=== PATIENT | female | born 1960 | race Two or more races ===

== ENCOUNTER → 2016-06-16 | Outpatient (CLI) | payer BC ==
[~2016-06-16] VITALS: Ht 1 cm; Wt 0.5 kg
[~2016-06-16] MED LIST: CYANOCOBALAMIN (B-12) 1000 MCG/1 ML VIAL IM ONE; CYANOCOBALAMIN (B-12) 1000 MCG/1 ML VIAL ONE; KETOROLAC TROMETH 60MG/2ML VIAL IM ONE
[2016-06-16 15:00] VITALS: BP 125/79
[2016-06-16 15:31] VITALS: BP 124/84
[2016-06-16 16:29] LABS: Basophils # (auto) 0 uL; Basophils % (auto) 0.6 % (0.0-2.0); Eosinophils # (auto) 0.1 uL; Eosinophils % (auto) 2.1 % (0.0-7.0); Hematocrit 39.8 % (36.0-46.0); Hemoglobin 12.9 g/dL (12.2-16.2); Lymphocytes # (auto) 0.9 uL; Lymphocytes % (auto) 17.1 % (10.0-50.0); Mean Corpuscular Hemoglobin 31.1 pg (28.0-32.0); Mean Corpuscular Hgb Conc. 32.4 g/dL (32.0-36.0); Mean Corpuscular Volume 96.1 fL (80.0-100.0); Mean Platelet Volume 8.6 fL (7.4-10.4); Monocytes # (auto) 0.4 uL; Monocytes % (auto) 7.1 % (0.0-12.0); Neutrophils # (auto) 3.8 uL; Neutrophils % (auto) 73.1 % (37.0-80.0); Platelet Count (auto) 320 10^3/uL (140-450); Red Cell Distribution Width 12.4 % (11.6-16.0); White Blood Cell 5.2 10^3/uL (4.4-10.8)
[2016-06-16 16:43] LABS: Albumin 3.6 g/dL (3.4-5.0); BUN/Creatinine Ratio 11.5; Bilirubin, Total 0.4 mg/dL (0.2-1.0); Total Protein 7.1 g/dL (6.4-8.2)
== END | disposition home or self-care (01) ==
LOC: CHF HDHVI 15:01
PROVIDERS: ATTEND Internal Medicine Cardiovascular Disease
DX: I10 Essential (primary) hypertension (principal); E83.40 Disorders of magnesium metabolism, unspecified; D64.9 Anemia, unspecified
CPT/HCPCS: 36415; 80053; 83735; 85025; 96372; G0463; J1885

== ENCOUNTER → 2016-06-23 | Outpatient (CLI) | payer BC | END | disposition home or self-care (01) | LOC: Rad HDHVI 10:05 | PROVIDERS: ATTEND Internal Medicine Cardiovascular Disease | DX: I10 Essential (primary) hypertension (principal) | CPT/HCPCS: 93306 ==

== ENCOUNTER → 2016-07-13 | Outpatient (CLI) | payer BC ==
[2016-07-13 15:15] VITALS: BP 122/77
[2016-07-13 15:45] VITALS: BP 120/78
== END | disposition home or self-care (01) ==
LOC: CHF HDHVI 15:18
PROVIDERS: ATTEND Internal Medicine Cardiovascular Disease
DX: I10 Essential (primary) hypertension (principal); D64.9 Anemia, unspecified; M25.562 Pain in left knee; R53.81 Other malaise; R53.83 Other fatigue
CPT/HCPCS: 96372; G0463; J1885; J3420

== ENCOUNTER → 2016-11-07 | Outpatient (CLI) | payer BC ==
[~2016-11-07] VITALS: Ht 149.9 cm; Wt 56.7 kg
== END | disposition home or self-care (01) ==
LOC: Rad HDHVI 13:52
PROVIDERS: ATTEND Internal Medicine Cardiovascular Disease
DX: I10 Essential (primary) hypertension (principal)
CPT/HCPCS: 78452; 93017; 96374; A9500

== ENCOUNTER → 2018-08-14 | Outpatient (CLI) | payer BC ==
[2018-08-14 16:18] LABS: Basophils # (auto) 0 uL; Basophils % (auto) 0.7 % (0.0-2.0); Eosinophils # (auto) 0.2 uL; Eosinophils % (auto) 6.1 % (0.0-7.0); Hematocrit 42.4 % (36.0-46.0); Hemoglobin 14.1 g/dL (12.2-16.2); Lymphocytes # (auto) 0.9 uL; Lymphocytes % (auto) 26.7 % (10.0-50.0); Mean Corpuscular Hgb Conc. 33.3 g/dL (32.0-36.0); Mean Corpuscular Volume 95.9 fL (80.0-100.0); Monocytes # (auto) 0.3 uL; Monocytes % (auto) 9.2 % (0.0-12.0); Neutrophils # (auto) 1.9 uL; Neutrophils % (auto) 57.3 % (37.0-80.0); Nucleated Red Blood Cells % 0.8 %; Platelet Count (auto) 249 10^3/uL (140-450); Red Blood Cells 4.42 10^6/uL (4.0-5.20); Red Cell Distribution Width 12.3 % (11.8-14.3); White Blood Cell 3.3 10^3/uL (4.4-10.8)
[2018-08-14 16:27] LABS: Albumin 3.8 g/dL (3.4-5.0); Calcium 9.9 mg/dL (8.5-10.1); Magnesium 1.9 mg/dL (1.6-2.6); Potassium 3.9 mmol/L (3.5-5.1)
[2018-08-14 16:41] LABS: BUN/Creatinine Ratio 12.4; Bilirubin, Total 0.5 mg/dL (0.2-1.0); Total Protein 6.9 g/dL (6.4-8.2)
== END | disposition home or self-care (01) ==
LOC: LAB 13:57
PROVIDERS: ATTEND Internal Medicine Cardiovascular Disease
DX: E55.9 Vitamin D deficiency, unspecified (principal); I49.9 Cardiac arrhythmia, unspecified; D51.9 Vitamin B12 deficiency anemia, unspecified; E03.9 Hypothyroidism, unspecified; E61.2 Magnesium deficiency
CPT/HCPCS: 36415; 80053; 80061; 82306; 82607; 83036; 83735; 84443; 85025

== ENCOUNTER → 2018-08-17 | Outpatient (CLI) | payer BC ==
[2018-08-17 12:00] VITALS: BP 118/93
--- NOTE | 2018-08-17 12:00 | NUR ---
CH[facility] PT ARRIVED AT [facility] FOR FOLLOW UP APPT. 0 DISTRESS V/S OBTAINED PT A/O X3 0 PAIN
[2018-08-17 13:00] VITALS: BP 125/87
--- NOTE | 2018-08-17 13:00 | NUR ---
Discharge Instructions See e-MAR for any mediations given with this visit. Patient education given on disease process. Patient verbalized understanding. Previous labs reviewed. Patient discharged in stable condition with after care instructions and follow up appointment.
--- NOTE | 2018-08-17 15:49 | NUR ---
CHF CARDIODYNAMICS AND 6 MIN WALK TEST COMPLETE PT TOLERATED WELL
== END | disposition home or self-care (01) ==
LOC: Rad HDHVI 12:10
PROVIDERS: ATTEND Internal Medicine Cardiovascular Disease
DX: I07.1 Rheumatic tricuspid insufficiency (principal); I27.0 Primary pulmonary hypertension; R06.02 Shortness of breath
CPT/HCPCS: 93306; 93701; 94618; G0463

== ENCOUNTER → 2018-09-19 | Outpatient (CLI) | payer BC ==
[~2018-09-19] MED LIST changes: -KETOROLAC TROMETH 60MG/2ML VIAL IM ONE
[2018-09-19 11:45] VITALS: BP 115/81
[2018-09-19 12:30] VITALS: BP 106/81
--- NOTE | 2018-09-19 12:30 | NUR ---
[facility] Discharge Instructions See e-MAR for any mediations given with this visit. Patient education given on disease process. Patient verbalized understanding. Previous labs reviewed. Patient discharged in stable condition with after care instructions and follow up appointment. NOTE B12 IM L DELTOID ADMIN BY SOHAIL SILVA CARDIODYNAMICS PERFORMED BY SOHAIL SILVA AND RESULTS REVIEWED WITH PATIENT BY RYAN CALVERT.
[2018-09-19 16:39] LABS: Albumin 3.5 g/dL (3.4-5.0); Calcium 9.6 mg/dL (8.5-10.1); Magnesium 2.1 mg/dL (1.6-2.6); Potassium 4.1 mmol/L (3.5-5.1)
[2018-09-19 16:41] LABS: Basophils # (auto) 0 uL; Basophils % (auto) 0.7 % (0.0-2.0); Eosinophils # (auto) 0.1 uL; Eosinophils % (auto) 2.4 % (0.0-7.0); Hematocrit 42.2 % (36.0-46.0); Hemoglobin 14.3 g/dL (12.2-16.2); Lymphocytes # (auto) 0.9 uL; Lymphocytes % (auto) 20.8 % (10.0-50.0); Mean Corpuscular Hemoglobin 32.5 pg (28.0-32.0); Mean Corpuscular Hgb Conc. 33.8 g/dL (32.0-36.0); Mean Corpuscular Volume 96.1 fL (80.0-100.0); Monocytes # (auto) 0.4 uL; Monocytes % (auto) 8.5 % (0.0-12.0); Neutrophils % (auto) 67.6 % (37.0-80.0); Nucleated Red Blood Cells % 0.2 %; Platelet Count (auto) 198 10^3/uL (140-450); Red Blood Cells 4.39 10^6/uL (4.0-5.20); Red Cell Distribution Width 12.8 % (11.8-14.3); White Blood Cell 4.4 10^3/uL (4.4-10.8)
[2018-09-19 16:44] LABS: BUN/Creatinine Ratio 15.8; Bilirubin, Total 0.7 mg/dL (0.2-1.0); Total Protein 6.8 g/dL (6.4-8.2)
== END | disposition home or self-care (01) ==
LOC: CHF HDHVI 12:15
PROVIDERS: ATTEND Internal Medicine Cardiovascular Disease
DX: D64.9 Anemia, unspecified (principal); E83.40 Disorders of magnesium metabolism, unspecified; I10 Essential (primary) hypertension; R53.83 Other fatigue; I27.21 Secondary pulmonary arterial hypertension; E03.9 Hypothyroidism, unspecified
CPT/HCPCS: 36415; 80053; 83735; 85025; 93701; 96372; G0463; J3420

== ENCOUNTER → 2018-11-28 | Outpatient (CLI) | payer BC ==
[2018-11-28 15:20] VITALS: BP 117/91
[2018-11-28 15:59] LABS: Basophils # (auto) 0 uL; Basophils % (auto) 1.1 % (0.0-2.0); Eosinophils # (auto) 0.1 uL; Eosinophils % (auto) 3.1 % (0.0-7.0); Hematocrit 40.8 % (36.0-46.0); Hemoglobin 14.1 g/dL (12.2-16.2); Lymphocytes # (auto) 0.9 uL; Lymphocytes % (auto) 20.1 % (10.0-50.0); Mean Corpuscular Hemoglobin 33.4 pg (28.0-32.0); Mean Corpuscular Hgb Conc. 34.6 g/dL (32.0-36.0); Mean Corpuscular Volume 96.4 fL (80.0-100.0); Monocytes # (auto) 0.4 uL; Monocytes % (auto) 9.1 % (0.0-12.0); Neutrophils % (auto) 66.6 % (37.0-80.0); Nucleated Red Blood Cells % 0.1 %; Platelet Count (auto) 220 10^3/uL (140-450); Red Blood Cells 4.23 10^6/uL (4.0-5.20); Red Cell Distribution Width 12.8 % (11.8-14.3); White Blood Cell 4.5 10^3/uL (4.4-10.8)
[2018-11-28 16:00] VITALS: BP 113/79
--- NOTE | 2018-11-28 16:00 | NUR ---
[facility] Discharge Instructions See e-MAR for any mediations given with this visit. Patient education given on disease process. Patient verbalized understanding. Previous labs reviewed. Patient discharged in stable condition with after care instructions and follow up appointment. NOTE CARDIODYNAMICS PERFORMED BY KAYLEY SILVA AND REVIEWED WITH PATIENT BY VERNELL CALVERT. B12 IM L DELTOID ADMIN BY KAYLEY SILVA. ADCIRCA CHANGED TO 40MG BID, ECHO SCHEDULED FOR 12/26/18 AT 1500.
[2018-11-28 16:09] LABS: Albumin 3.8 g/dL (3.4-5.0); BUN/Creatinine Ratio 13.5; Calcium 9.7 mg/dL (8.5-10.1); Potassium 3.7 mmol/L (3.5-5.1)
[2018-11-28 16:11] LABS: Bilirubin, Total 0.8 mg/dL (0.2-1.0); Total Protein 7.2 g/dL (6.4-8.2)
== END | disposition home or self-care (01) ==
LOC: CHF HDHVI 15:28
PROVIDERS: ATTEND Internal Medicine Cardiovascular Disease
DX: I27.21 Secondary pulmonary arterial hypertension (principal); R53.83 Other fatigue; D64.9 Anemia, unspecified; I10 Essential (primary) hypertension
CPT/HCPCS: 36415; 80053; 85025; 93701; 96372; G0463; J3420

== ENCOUNTER 2019-08-18 19:56 | Emergency (ER) | payer BC ==
[~2019-08-18] VITALS: Ht 149.9 cm; Wt 59.4 kg
[2019-08-18 23:23] VITALS: BP 138/86
[2019-08-18] MEDS ORDERED: CLINDAMYCIN 600 MG/4 ML VL IM ONE (23:30)
[2019-08-18] MEDS ORDERED: TETANUS-DIPTH-ACEL PERTUSSIS 0.5ML SYR Tdap IM ONE (23:30)
== END 2019-08-19 00:39 | disposition home or self-care (01) ==
LOC: ER 19:57
DX: S51.851A Open bite of right forearm, initial encounter (principal); W55.01XA Bitten by cat, initial encounter; Y93.89 Activity, other specified; Y92.89 Other specified places as the place of occurrence of the external cause; Y99.8 Other external cause status
CPT/HCPCS: 90471; 90715; 96372

== ENCOUNTER → 2020-03-04 | Outpatient (CLI) | payer BC | END | disposition home or self-care (01) | LOC: Rad HDHVI 14:06 | PROVIDERS: ATTEND Internal Medicine Cardiovascular Disease | DX: I27.21 Secondary pulmonary arterial hypertension (principal); R07.89 Other chest pain | CPT/HCPCS: 93306 ==

== ENCOUNTER → 2020-06-17 | Outpatient (CLI) | payer BC ==
[~2020-06-17] VITALS: Ht 30.5 cm; Wt 0.5 kg
[2020-06-17 10:45] VITALS: BP 133/100
[2020-06-17 12:10] VITALS: BP 135/94
[2020-06-17 15:36] LABS: Basophils # (auto) 0 10 ^3/uL (0-0.2); Basophils % (auto) 0.7 % (0.0-2.0); Eosinophils # (auto) 0.1 10 ^3/uL (0-0.8); Eosinophils % (auto) 3.4 % (0.0-7.0); Hematocrit 40.6 % (36.0-46.0); Hemoglobin 13.7 g/dL (12.2-16.2); Lymphocytes % (auto) 24.2 % (10.0-50.0); Mean Corpuscular Hgb Conc. 33.8 g/dL (32.0-36.0); Mean Corpuscular Volume 88.8 fL (80.0-100.0); Monocytes # (auto) 0.4 10 ^3/uL (0-1.3); Monocytes % (auto) 10.1 % (0.0-12.0); Neutrophils # (auto) 2.6 10 ^3/uL (1.6-8.6); Neutrophils % (auto) 61.6 % (37.0-80.0); Platelet Count (auto) 262 10^3/uL (140-450); Red Blood Cells 4.58 10^6/uL (4.0-5.20); Red Cell Distribution Width 15.6 % (11.8-14.3); White Blood Cell 4.2 10^3/uL (4.4-10.8)
[2020-06-17 15:46] LABS: Albumin 3.7 g/dL (3.4-5.0); BUN/Creatinine Ratio 11.8; Magnesium 2.1 mg/dL (1.6-2.6)
[2020-06-17 15:48] LABS: Bilirubin, Total 0.5 mg/dL (0.2-1.0); Total Protein 7.3 g/dL (6.4-8.2)
== END | disposition home or self-care (01) ==
LOC: CHF HDHVI 10:53
PROVIDERS: ATTEND Internal Medicine Cardiovascular Disease
DX: I27.0 Primary pulmonary hypertension (principal); D64.9 Anemia, unspecified; E55.9 Vitamin D deficiency, unspecified; E11.9 Type 2 diabetes mellitus without complications; R06.02 Shortness of breath
CPT/HCPCS: 36415; 71046; 80053; 82306; 82607; 83036; 83735; 83880; 84443; 85025; 94618; 96372; G0463; J3420

== ENCOUNTER → 2020-10-09 | Outpatient (CLI) | payer BC | END | disposition home or self-care (01) | LOC: Rad HDHVI 14:58 | PROVIDERS: ATTEND Internal Medicine Cardiovascular Disease | DX: R07.89 Other chest pain (principal); R06.02 Shortness of breath | CPT/HCPCS: 93306 ==

== ENCOUNTER → 2021-10-20 | Outpatient (CLI) | payer BC | END | disposition home or self-care (01) | LOC: Rad HDHVI 14:01 | PROVIDERS: ATTEND Internal Medicine Cardiovascular Disease | DX: I08.2 Rheumatic disorders of both aortic and tricuspid valves (principal); R06.02 Shortness of breath; R00.2 Palpitations | CPT/HCPCS: 93306 ==

== ENCOUNTER → 2021-10-21 | Outpatient (CLI) | payer BC ==
[~2021-10-21] VITALS: Ht 152.4 cm; Wt 63.5 kg
== END | disposition home or self-care (01) ==
LOC: Rad HDHVI 14:02
PROVIDERS: ATTEND Internal Medicine Cardiovascular Disease
DX: R07.9 Chest pain, unspecified (principal); I10 Essential (primary) hypertension; R06.02 Shortness of breath; I27.21 Secondary pulmonary arterial hypertension; Z82.49 Family history of ischemic heart disease and other diseases of the circulatory system
CPT/HCPCS: 78452; 93017; 96374; A9500

== ENCOUNTER 2022-06-30 08:37 | Inpatient (IN) | payer BC ==
[~2022-06-30] VITALS: Ht 149.9 cm; Wt 65.9 kg
[2022-06-30 09:23] LABS: Albumin 3.5 g/dL (3.4-5.0); Calcium 9.8 mg/dL (8.5-10.1); Magnesium 1.2 mg/dL (1.6-2.6)
[2022-06-30 09:29] LABS: BUN/Creatinine Ratio 11.1; Bilirubin, Total 4.5 mg/dL (0.2-1.0)
[2022-06-30 09:36] LABS: Eosinophils # (auto) 0 10 ^3/uL (0-0.8); Hematocrit 41.2 % (36.0-46.0); Lymphocytes # (auto) 0.5 10 ^3/uL (0.4-5.4); Neutrophils % (auto) 78.4 % (37.0-80.0)
[2022-06-30 09:37] LABS: Basophils # (auto) 0.1 10 ^3/uL (0-0.2); Basophils % (auto) 0.9 % (0.0-2.0); Eosinophils % (auto) 0.6 % (0.0-7.0); Hemoglobin 14.5 g/dL (12.2-16.2); Lymphocytes % (auto) 8.2 % (10.0-50.0); Mean Corpuscular Hemoglobin 36.2 pg (28.0-32.0); Mean Corpuscular Hgb Conc. 35.2 g/dL (32.0-36.0); Mean Corpuscular Volume 102.9 fL (80.0-100.0); Monocytes # (auto) 0.7 10 ^3/uL (0-1.3); Monocytes % (auto) 11.9 % (0.0-12.0); Neutrophils # (auto) 4.4 10 ^3/uL (1.6-8.6); Nucleated Red Blood Cells % 0.4 %; Red Blood Cells 4.01 10^6/uL (4.0-5.20); Red Cell Distribution Width 15.4 % (11.8-14.3); White Blood Cell 5.6 10^3/uL (4.4-10.8)
[2022-06-30 09:39] LABS: Potassium 2.6 mmol/L (3.5-5.1)
[2022-06-30 09:43] LABS: INR 1.13 (0.9-1.15); Partial Thromboplastin Time 25.1 sec (24.6-33.4)
[2022-06-30 09:48] LABS: Urine Bacteria NONE SEEN /hpf (None Seen); Urine Blood Negative /uL (Negative); Urine WBC 1 /hpf (0 - 5)
[2022-06-30] MEDS ORDERED: POTASSIUM CHL 20MEQ/100ML 100 ML IV ONE (11:15)
[2022-06-30] MEDS ORDERED: POTASSIUM CHL 20 Meq TABLET PO ONE (11:15)
[2022-06-30] MEDS ORDERED: POTASSIUM EFFERVESENT TAB 25 MEQ PO ONE (11:45)
[2022-06-30] MEDS ORDERED: NITROGLYCERIN 0.4 MG SL TAB SL PRN (11:45)
[2022-06-30] MEDS ORDERED: MORPHINE SULFATE INJ 2 MG/ml SYRG IV PRN (11:45)
[2022-06-30] MEDS: LORazepam 2MG/ML-1ML VIAL IV PRN ×2 (12:55→20:48)
[2022-06-30] MEDS: SILDENAFIL CITRATE 20 MG TAB PO SCH ×2 (14:32→21:39)
[2022-06-30] MEDS: FOLIC ACID 1 MG, MULTIPLE VITAMIN 10 ML, MAGNESIUM SULF SDV 50% 8 MEQ, THIAMINE INJ 100... INJ SCH ×5 (14:40)
[2022-06-30] MEDS: chlordiazePOXIDE HCL 25 MG CAP PO SCH (21:39)
[2022-06-30 22:47] VITALS: BP 109/72
[2022-07-01] VITALS (7 sets, daily range): BP systolic 108–132; BP diastolic 76–94
[2022-07-01] MEDS ORDERED: POTA10TA51 PO (02:49)
[2022-07-01] MEDS ORDERED: POLY33504 PO (02:49)
[2022-07-01] MEDS ORDERED: LORA-655 PO (02:49)
[2022-07-01] MEDS ORDERED: SUCR1TAB PO (02:49)
[2022-07-01] MEDS ORDERED: MACI1TAB2 PO (02:49)
[2022-07-01] MEDS ORDERED: FURO1TAB31 PO (02:49)
[2022-07-01] MEDS ORDERED: PANT40TA2 PO (02:49)
[2022-07-01] MEDS: LORazepam 2MG/ML-1ML VIAL IV PRN ×3 (03:01→20:10)
[2022-07-01] MEDS: chlordiazePOXIDE HCL 25 MG CAP PO SCH ×2 (08:21→22:05)
[2022-07-01] MEDS: SILDENAFIL CITRATE 20 MG TAB PO SCH ×3 (08:21→20:10)
[2022-07-01 09:06] LABS: Basophils # (auto) 0 10 ^3/uL (0-0.2); Eosinophils # (auto) 0.1 10 ^3/uL (0-0.8); Mean Corpuscular Volume 103.9 fL (80.0-100.0); Monocytes # (auto) 0.5 10 ^3/uL (0-1.3)
[2022-07-01 09:07] LABS: Basophils % (auto) 0.5 % (0.0-2.0); Eosinophils % (auto) 1.5 % (0.0-7.0); Hematocrit 38.2 % (36.0-46.0); Hemoglobin 13.4 g/dL (12.2-16.2); Lymphocytes # (auto) 0.4 10 ^3/uL (0.4-5.4); Lymphocytes % (auto) 10.6 % (10.0-50.0); Mean Corpuscular Hemoglobin 36.3 pg (28.0-32.0); Mean Corpuscular Hgb Conc. 34.9 g/dL (32.0-36.0); Monocytes % (auto) 12.6 % (0.0-12.0); Neutrophils # (auto) 3.2 10 ^3/uL (1.6-8.6); Neutrophils % (auto) 74.8 % (37.0-80.0); Nucleated Red Blood Cells % 0.4 %; Red Blood Cells 3.68 10^6/uL (4.0-5.20); Red Cell Distribution Width 15.6 % (11.8-14.3); White Blood Cell 4.2 10^3/uL (4.4-10.8)
[2022-07-01 09:23] LABS: Potassium 3.2 mmol/L (3.5-5.1)
[2022-07-01 09:32] LABS: BUN/Creatinine Ratio 12.1; Bilirubin, Total 4.7 mg/dL (0.2-1.0); Calcium 9.7 mg/dL (8.5-10.1); Magnesium 1.7 mg/dL (1.6-2.6); Total Protein 6.2 g/dL (6.4-8.2)
[2022-07-01] MEDS: FOLIC ACID 1 MG, MULTIPLE VITAMIN 10 ML, MAGNESIUM SULF SDV 50% 8 MEQ, THIAMINE INJ 100... INJ SCH ×5 (12:41)
[2022-07-01] MEDS ORDERED: LORazepam 2MG/ML-1ML VIAL IV ONE (13:45)
[2022-07-01] MEDS ORDERED: chlordiazePOXIDE HCL 25 MG CAP PO ONE (13:45)
[2022-07-01] MEDS: FUROSEMIDE 20 MG TAB PO SCH (17:19)
[2022-07-01] MEDS: traMADol HCL 50 MG TAB PO PRN (18:24)
[2022-07-01] MEDS: UPTRAVI PO SCH (22:05)
[2022-07-02] MEDS: LORazepam 2MG/ML-1ML VIAL IV PRN ×4 (03:04→22:27)
[2022-07-02 05:00] VITALS: BP 137/74
[2022-07-02] MEDS: traMADol HCL 50 MG TAB PO PRN ×3 (05:22→17:25)
[2022-07-02] MEDS: FUROSEMIDE 20 MG TAB PO SCH ×2 (06:38→17:27)
[2022-07-02] MEDS: SILDENAFIL CITRATE 20 MG TAB PO SCH ×3 (08:09→20:10)
[2022-07-02] MEDS: POTASSIUM CHL 20 Meq TABLET PO SCH (08:18)
[2022-07-02] MEDS: PANTOPRAZOLE 40 MG TAB PO SCH (08:18)
[2022-07-02 08:30] VITALS: BP 115/82
[2022-07-02 09:00] VITALS: BP 115/82
[2022-07-02] MEDS ORDERED: PANTOPRAZOLE 40 MG TAB PO SCH (10:00)
[2022-07-02] MEDS: UPTRAVI PO SCH ×2 (10:44→21:11)
[2022-07-02] MEDS: chlordiazePOXIDE HCL 25 MG CAP PO SCH ×2 (10:44→21:09)
[2022-07-02] MEDS: FOLIC ACID 1 MG, MULTIPLE VITAMIN 10 ML, MAGNESIUM SULF SDV 50% 8 MEQ, THIAMINE INJ 100... INJ SCH ×5 (12:45)
[2022-07-02 13:30] VITALS: BP 102/70
[2022-07-02 17:00] VITALS: BP 116/74
[2022-07-02 22:00] VITALS: BP 107/71
[2022-07-03] MEDS: LORazepam 2MG/ML-1ML VIAL IV PRN ×4 (04:42→23:45)
[2022-07-03 05:00] VITALS: BP 109/79
[2022-07-03] MEDS: FUROSEMIDE 20 MG TAB PO SCH ×2 (05:20→18:00)
[2022-07-03] MEDS: SILDENAFIL CITRATE 20 MG TAB PO SCH ×3 (08:44→20:06)
[2022-07-03] MEDS: chlordiazePOXIDE HCL 25 MG CAP PO SCH ×2 (08:44→21:21)
[2022-07-03] MEDS: POTASSIUM CHL 20 Meq TABLET PO SCH (08:45)
[2022-07-03] MEDS: PANTOPRAZOLE 40 MG TAB PO SCH (08:46)
[2022-07-03] MEDS: UPTRAVI PO SCH ×2 (08:47→21:22)
[2022-07-03 09:00] VITALS: BP 130/94
[2022-07-03] MEDS: traMADol HCL 50 MG TAB PO PRN (11:48)
[2022-07-03 12:38] VITALS: BP 104/76
[2022-07-03 16:38] VITALS: BP 113/77
[2022-07-03] MEDS: FOLIC ACID 1 MG, MULTIPLE VITAMIN 10 ML, MAGNESIUM SULF SDV 50% 8 MEQ, THIAMINE INJ 100... INJ SCH ×5 (17:02)
[2022-07-03 22:00] VITALS: BP 112/78
[2022-07-04 05:00] VITALS: BP 97/62
[2022-07-04 05:44] VITALS: BP 120/84
[2022-07-04] MEDS: LORazepam 2MG/ML-1ML VIAL IV PRN ×3 (05:54→18:59)
[2022-07-04] MEDS: FUROSEMIDE 20 MG TAB PO SCH ×2 (05:54→17:00)
[2022-07-04] MEDS: chlordiazePOXIDE HCL 25 MG CAP PO SCH ×2 (08:49→20:30)
[2022-07-04] MEDS: PANTOPRAZOLE 40 MG TAB PO SCH (08:50)
[2022-07-04] MEDS: traMADol HCL 50 MG TAB PO PRN ×2 (08:50→17:00)
[2022-07-04] MEDS: POTASSIUM CHL 20 Meq TABLET PO SCH (08:50)
[2022-07-04] MEDS: UPTRAVI PO SCH ×2 (08:51→22:42)
[2022-07-04] MEDS: SILDENAFIL CITRATE 20 MG TAB PO SCH ×3 (08:54→20:31)
[2022-07-04 09:12] VITALS: BP 133/87
[2022-07-04] MEDS: FOLIC ACID 1 MG, MULTIPLE VITAMIN 10 ML, MAGNESIUM SULF SDV 50% 8 MEQ, THIAMINE INJ 100... INJ SCH ×5 (12:00)
[2022-07-04 12:54] VITALS: BP 114/72
[2022-07-04 16:20] VITALS: BP 108/79
[2022-07-04 22:00] VITALS: BP 97/61
[2022-07-05 05:00] VITALS: BP 113/79
[2022-07-05] MEDS: LORazepam 2MG/ML-1ML VIAL IV PRN ×5 (05:04→23:47)
[2022-07-05] MEDS: FUROSEMIDE 20 MG TAB PO SCH ×2 (06:18→17:43)
[2022-07-05 09:00] VITALS: BP 149/71
[2022-07-05] MEDS: SILDENAFIL CITRATE 20 MG TAB PO SCH ×3 (09:10→21:28)
[2022-07-05] MEDS: UPTRAVI PO SCH ×2 (09:10→21:28)
[2022-07-05] MEDS: chlordiazePOXIDE HCL 25 MG CAP PO SCH ×2 (09:10→21:28)
[2022-07-05] MEDS: POTASSIUM CHL 20 Meq TABLET PO SCH (09:11)
[2022-07-05] MEDS: FOLIC ACID 1 MG, MULTIPLE VITAMIN 10 ML, MAGNESIUM SULF SDV 50% 8 MEQ, THIAMINE INJ 100... INJ SCH ×5 (12:13)
[2022-07-05 13:00] VITALS: BP 115/74
[2022-07-05 16:52] VITALS: BP 128/83
[2022-07-05] MEDS: PANTOPRAZOLE 40 MG TAB PO SCH (19:31)
[2022-07-05 21:00] VITALS: BP 123/82
[2022-07-06] MEDS: traMADol HCL 50 MG TAB PO PRN (02:23)
[2022-07-06 05:00] VITALS: BP 131/87
[2022-07-06] MEDS: FUROSEMIDE 20 MG TAB PO SCH ×2 (05:40→18:21)
[2022-07-06 09:09] LABS: Basophils # (auto) 0 10 ^3/uL (0-0.2); Eosinophils # (auto) 0 10 ^3/uL (0-0.8); Eosinophils % (auto) 0.3 % (0.0-7.0); Hematocrit 31.8 % (36.0-46.0); Hemoglobin 10.4 g/dL (12.2-16.2); Monocytes # (auto) 0.8 10 ^3/uL (0-1.3); Neutrophils # (auto) 5.5 10 ^3/uL (1.6-8.6); Nucleated Red Blood Cells % 0.1 %
[2022-07-06 09:11] LABS: Basophils % (auto) 0.4 % (0.0-2.0); Calcium 8.9 mg/dL (8.5-10.1); Mean Corpuscular Hemoglobin 23.8 pg (28.0-32.0); Mean Corpuscular Hgb Conc. 32.7 g/dL (32.0-36.0); Mean Corpuscular Volume 72.6 fL (80.0-100.0); Monocytes % (auto) 10.4 % (0.0-12.0); Neutrophils % (auto) 74.9 % (37.0-80.0); Potassium 3.6 mmol/L (3.5-5.1); Red Blood Cells 4.38 10^6/uL (4.0-5.20); Red Cell Distribution Width 17.7 % (11.8-14.3); White Blood Cell 7.3 10^3/uL (4.4-10.8)
[2022-07-06 09:13] LABS: BUN/Creatinine Ratio 17.8
[2022-07-06] MEDS: SILDENAFIL CITRATE 20 MG TAB PO SCH ×3 (09:51→20:35)
[2022-07-06] MEDS: POTASSIUM CHL 20 Meq TABLET PO SCH (09:51)
[2022-07-06] MEDS: PANTOPRAZOLE 40 MG TAB PO SCH (09:52)
[2022-07-06] MEDS: chlordiazePOXIDE HCL 25 MG CAP PO SCH ×3 (09:52→21:13)
[2022-07-06] MEDS: UPTRAVI PO SCH ×2 (09:52→21:14)
[2022-07-06] MEDS: LORazepam 2MG/ML-1ML VIAL IV PRN (09:54)
[2022-07-06] MEDS: FOLIC ACID 1 MG, MULTIPLE VITAMIN 10 ML, MAGNESIUM SULF SDV 50% 8 MEQ, THIAMINE INJ 100... INJ SCH ×5 (14:17)
[2022-07-06 14:20] VITALS: BP 122/78
[2022-07-06 16:30] VITALS: BP 96/63
[2022-07-06 22:00] VITALS: BP 121/85
[2022-07-07] MEDS: traMADol HCL 50 MG TAB PO PRN ×3 (00:38→14:34)
[2022-07-07] MEDS: LORazepam 2MG/ML-1ML VIAL IV PRN (00:46)
[2022-07-07 05:12] VITALS: BP 111/74
[2022-07-07] MEDS: FUROSEMIDE 20 MG TAB PO SCH ×2 (05:44→17:33)
[2022-07-07 09:00] VITALS: BP 129/88
[2022-07-07] MEDS: POTASSIUM CHL 20 Meq TABLET PO SCH (10:24)
[2022-07-07] MEDS: chlordiazePOXIDE HCL 25 MG CAP PO SCH ×2 (10:24→20:04)
[2022-07-07] MEDS: PANTOPRAZOLE 40 MG TAB PO SCH (10:25)
[2022-07-07] MEDS: SILDENAFIL CITRATE 20 MG TAB PO SCH ×3 (10:25→20:04)
[2022-07-07] MEDS: UPTRAVI PO SCH ×2 (11:53→20:05)
[2022-07-07 13:00] VITALS: BP 119/81
[2022-07-07] MEDS: FOLIC ACID 1 MG, MULTIPLE VITAMIN 10 ML, MAGNESIUM SULF SDV 50% 8 MEQ, THIAMINE INJ 100... INJ SCH ×5 (14:32)
[2022-07-07 17:00] VITALS: BP 100/63
[2022-07-07 22:00] VITALS: BP 113/78
[2022-07-07] MEDS: KETOROLAC TROMETH 30 MG/ML 1ML VIAL IV PRN (23:32)
[2022-07-08 05:00] VITALS: BP 116/70
[2022-07-08] MEDS: FUROSEMIDE 20 MG TAB PO SCH ×2 (05:43→18:09)
[2022-07-08] MEDS: KETOROLAC TROMETH 30 MG/ML 1ML VIAL IV PRN ×2 (05:43→18:14)
[2022-07-08] MEDS: chlordiazePOXIDE HCL 25 MG CAP PO SCH ×2 (08:36→22:08)
[2022-07-08] MEDS: SILDENAFIL CITRATE 20 MG TAB PO SCH ×3 (08:37→20:28)
[2022-07-08] MEDS: PANTOPRAZOLE 40 MG TAB PO SCH (08:37)
[2022-07-08] MEDS: POTASSIUM CHL 20 Meq TABLET PO SCH (08:37)
[2022-07-08] MEDS: UPTRAVI PO SCH ×2 (08:38→22:09)
[2022-07-08 09:00] VITALS: BP 99/67
[2022-07-08] MEDS: IPRATROPIUM BROM 0.5 MG/2.5ML INH SOL NEB PRN (10:51)
[2022-07-08 10:52] LABS: Basophils # (auto) 0 10 ^3/uL (0-0.2); Basophils % (auto) 0.5 % (0.0-2.0); Lymphocytes # (auto) 0.7 10 ^3/uL (0.4-5.4); Neutrophils # (auto) 5.5 10 ^3/uL (1.6-8.6); White Blood Cell 7.5 10^3/uL (4.4-10.8)
[2022-07-08 10:54] LABS: Eosinophils # (auto) 0 10 ^3/uL (0-0.8); Eosinophils % (auto) 0.6 % (0.0-7.0); Hematocrit 38.6 % (36.0-46.0); Lymphocytes % (auto) 8.9 % (10.0-50.0); Mean Corpuscular Hemoglobin 36.2 pg (28.0-32.0); Mean Corpuscular Hgb Conc. 33.6 g/dL (32.0-36.0); Mean Corpuscular Volume 107.7 fL (80.0-100.0); Monocytes # (auto) 1.3 10 ^3/uL (0-1.3); Monocytes % (auto) 17.3 % (0.0-12.0); Neutrophils % (auto) 72.7 % (37.0-80.0); Nucleated Red Blood Cells % 0.1 %; Red Blood Cells 3.58 10^6/uL (4.0-5.20); Red Cell Distribution Width 14.6 % (11.8-14.3)
[2022-07-08] MEDS: FOLIC ACID 1 MG, MULTIPLE VITAMIN 10 ML, MAGNESIUM SULF SDV 50% 8 MEQ, THIAMINE INJ 100... INJ SCH ×5 (12:33)
[2022-07-08 13:21] LABS: BUN/Creatinine Ratio 14.7; Potassium 3.6 mmol/L (3.5-5.1)
[2022-07-08 13:22] LABS: Albumin 2.3 g/dL (3.4-5.0); Bilirubin, Total 1.5 mg/dL (0.2-1.0); Calcium 10.1 mg/dL (8.5-10.1); Total Protein 6.3 g/dL (6.4-8.2)
[2022-07-08 17:00] VITALS: BP 109/65
[2022-07-08] MEDS: traMADol HCL 50 MG TAB PO PRN (17:03)
[2022-07-08 22:00] VITALS: BP 91/53
[2022-07-08 23:29] VITALS: BP 91/53
[2022-07-08] MEDS: LORazepam 2MG/ML-1ML VIAL IV PRN (23:39)
[2022-07-09] MEDS: KETOROLAC TROMETH 30 MG/ML 1ML VIAL IV PRN (03:04)
[2022-07-09] MEDS: IPRATROPIUM BROM 0.5 MG/2.5ML INH SOL NEB PRN ×3 (03:34→20:17)
[2022-07-09 05:00] VITALS: BP 110/76
[2022-07-09] MEDS: FUROSEMIDE 20 MG TAB PO SCH ×2 (06:25→18:06)
[2022-07-09 08:00] VITALS: BP 110/76
[2022-07-09] MEDS: SILDENAFIL CITRATE 20 MG TAB PO SCH ×3 (08:30→20:24)
[2022-07-09] MEDS: PANTOPRAZOLE 40 MG TAB PO SCH (08:30)
[2022-07-09] MEDS: POTASSIUM CHL 20 Meq TABLET PO SCH (08:30)
[2022-07-09] MEDS: chlordiazePOXIDE HCL 25 MG CAP PO SCH ×2 (08:30→22:18)
[2022-07-09] MEDS: UPTRAVI PO SCH ×2 (08:31→22:19)
[2022-07-09 09:00] VITALS: BP 118/74
[2022-07-09] MEDS: LORazepam 2MG/ML-1ML VIAL IV PRN (11:29)
[2022-07-09] MEDS: FOLIC ACID 1 MG, MULTIPLE VITAMIN 10 ML, MAGNESIUM SULF SDV 50% 8 MEQ, THIAMINE INJ 100... INJ SCH ×5 (12:33)
[2022-07-09 13:00] VITALS: BP 124/86
[2022-07-09 17:23] VITALS: BP 141/72
[2022-07-09 21:31] VITALS: BP 131/84
[2022-07-10 04:32] VITALS: BP 140/86
[2022-07-10] MEDS: FUROSEMIDE 20 MG TAB PO SCH ×2 (05:43→18:01)
[2022-07-10] MEDS: KETOROLAC TROMETH 30 MG/ML 1ML VIAL IV PRN (05:44)
[2022-07-10 08:00] VITALS: BP 110/76
[2022-07-10 09:00] VITALS: BP 134/84
[2022-07-10] MEDS: POTASSIUM CHL 20 Meq TABLET PO SCH (09:07)
[2022-07-10] MEDS: SILDENAFIL CITRATE 20 MG TAB PO SCH ×3 (09:07→20:00)
[2022-07-10] MEDS: chlordiazePOXIDE HCL 25 MG CAP PO SCH ×2 (09:07→21:49)
[2022-07-10] MEDS: PANTOPRAZOLE 40 MG TAB PO SCH (09:07)
[2022-07-10] MEDS: UPTRAVI PO SCH ×2 (09:08→21:55)
[2022-07-10 13:30] VITALS: BP 124/77
[2022-07-10] MEDS: FOLIC ACID 1 MG, MULTIPLE VITAMIN 10 ML, MAGNESIUM SULF SDV 50% 8 MEQ, THIAMINE INJ 100... INJ SCH ×5 (13:46)
[2022-07-10] MEDS: IPRATROPIUM BROM 0.5 MG/2.5ML INH SOL NEB PRN ×2 (13:51→23:26)
[2022-07-10 17:00] VITALS: BP 120/83
[2022-07-10 21:42] VITALS: BP 120/83
[2022-07-11] MEDS: KETOROLAC TROMETH 30 MG/ML 1ML VIAL IV PRN ×2 (00:42→12:22)
[2022-07-11 05:00] VITALS: BP 107/71
[2022-07-11] MEDS: FUROSEMIDE 20 MG TAB PO SCH ×2 (05:51→17:50)
[2022-07-11 09:00] VITALS: BP 98/67
[2022-07-11] MEDS: SILDENAFIL CITRATE 20 MG TAB PO SCH ×3 (09:08→22:34)
[2022-07-11] MEDS: chlordiazePOXIDE HCL 25 MG CAP PO SCH ×2 (09:09→22:35)
[2022-07-11] MEDS: PANTOPRAZOLE 40 MG TAB PO SCH (09:09)
[2022-07-11] MEDS: POTASSIUM CHL 20 Meq TABLET PO SCH (09:10)
[2022-07-11] MEDS: UPTRAVI PO SCH ×2 (09:12→22:35)
[2022-07-11 12:45] VITALS: BP 101/71
[2022-07-11] MEDS: LORazepam 2MG/ML-1ML VIAL IV PRN ×2 (14:21→19:59)
[2022-07-11 17:00] VITALS: BP 110/80
[2022-07-11 18:58] LABS: Basophils # (auto) 0 10 ^3/uL (0-0.2); Eosinophils # (auto) 0.1 10 ^3/uL (0-0.8); Eosinophils % (auto) 1.6 % (0.0-7.0); Hemoglobin 12.4 g/dL (12.2-16.2); Lymphocytes # (auto) 0.5 10 ^3/uL (0.4-5.4); Monocytes # (auto) 0.6 10 ^3/uL (0-1.3); Red Blood Cells 3.52 10^6/uL (4.0-5.20)
[2022-07-11 19:00] LABS: Basophils % (auto) 0.6 % (0.0-2.0); Hematocrit 36.5 % (36.0-46.0); Lymphocytes % (auto) 9.2 % (10.0-50.0); Mean Corpuscular Hemoglobin 35.1 pg (28.0-32.0); Mean Corpuscular Hgb Conc. 33.9 g/dL (32.0-36.0); Mean Corpuscular Volume 103.8 fL (80.0-100.0); Monocytes % (auto) 10.3 % (0.0-12.0); Neutrophils # (auto) 4.4 10 ^3/uL (1.6-8.6); Neutrophils % (auto) 78.3 % (37.0-80.0); Nucleated Red Blood Cells % 0.1 %; Red Cell Distribution Width 14.9 % (11.8-14.3); White Blood Cell 5.6 10^3/uL (4.4-10.8)
[2022-07-11 19:14] LABS: Calcium 9.9 mg/dL (8.5-10.1); Potassium 3.3 mmol/L (3.5-5.1)
[2022-07-11 19:20] LABS: BUN/Creatinine Ratio 11.6; Bilirubin, Total 0.8 mg/dL (0.2-1.0); Total Protein 5.6 g/dL (6.4-8.2)
[2022-07-11] MEDS ORDERED: POTASSIUM CHL 20 Meq TABLET PO ONE (20:00)
[2022-07-11] MEDS ORDERED: FUROSEMIDE 40 MG/4 ML VIAL IV ONE (20:00)
[2022-07-11] MEDS: methylPREDNISolone SOD SUCC 40 MG/ML VL IV SCH (21:04)
[2022-07-11 22:00] VITALS: BP 111/65
[2022-07-12 01:30] VITALS: BP 111/65
[2022-07-12] MEDS: LORazepam 2MG/ML-1ML VIAL IV PRN ×2 (04:07→14:48)
[2022-07-12] MEDS: IPRATROPIUM BROM 0.5 MG/2.5ML INH SOL NEB PRN ×2 (04:38→23:37)
[2022-07-12 05:00] VITALS: BP 119/81
[2022-07-12] MEDS: methylPREDNISolone SOD SUCC 40 MG/ML VL IV SCH ×3 (06:44→22:50)
[2022-07-12] MEDS: FUROSEMIDE 20 MG TAB PO SCH ×2 (06:45→17:49)
[2022-07-12 09:00] VITALS: BP 108/81
[2022-07-12] MEDS: chlordiazePOXIDE HCL 25 MG CAP PO SCH ×2 (09:15→22:50)
[2022-07-12] MEDS: PANTOPRAZOLE 40 MG TAB PO SCH (09:16)
[2022-07-12] MEDS: POTASSIUM CHL 20 Meq TABLET PO SCH (09:16)
[2022-07-12] MEDS: SILDENAFIL CITRATE 20 MG TAB PO SCH ×3 (09:16→22:49)
[2022-07-12] MEDS: UPTRAVI PO SCH ×2 (09:16→22:50)
[2022-07-12] MEDS ORDERED: POTASSIUM EFFERVESENT TAB 25 MEQ PO ONE (11:30)
[2022-07-12] MEDS: MAGNESIUM SULFATE 1GM/100ML 100 ML IV SCH ×2 (12:40→14:48)
[2022-07-12 13:00] VITALS: BP 110/71
[2022-07-12 17:00] VITALS: BP 106/72
[2022-07-12] MEDS: traMADol HCL 50 MG TAB PO PRN (17:49)
[2022-07-12 22:00] VITALS: BP 106/80
[2022-07-13 05:00] VITALS: BP 115/82
[2022-07-13] MEDS: methylPREDNISolone SOD SUCC 40 MG/ML VL IV SCH ×2 (06:20→14:29)
[2022-07-13] MEDS: FUROSEMIDE 20 MG TAB PO SCH ×2 (06:21→18:00)
[2022-07-13 08:52] VITALS: BP 130/90
[2022-07-13] MEDS: SILDENAFIL CITRATE 20 MG TAB PO SCH ×2 (09:00→14:29)
[2022-07-13] MEDS: POTASSIUM CHL 20 Meq TABLET PO SCH (09:00)
[2022-07-13] MEDS: PANTOPRAZOLE 40 MG TAB PO SCH (09:00)
[2022-07-13] MEDS: chlordiazePOXIDE HCL 25 MG CAP PO SCH (09:01)
[2022-07-13] MEDS: UPTRAVI PO SCH (09:02)
[2022-07-13] MEDS: IPRATROPIUM BROM 0.5 MG/2.5ML INH SOL NEB PRN (11:41)
[2022-07-13 13:00] VITALS: BP 101/66
[2022-07-13] MEDS: LORazepam 2MG/ML-1ML VIAL IV PRN (14:29)
[2022-07-13 17:00] VITALS: BP 115/63
== END 2022-07-13 18:15 | disposition home or self-care (01) | DRG 432 ==
LOC: ER 08:37 → TELE 11:48 → TELE-CENTR 22:15
PROVIDERS: ADMIT Internal Medicine Cardiovascular Disease; ATTEND Internal Medicine Cardiovascular Disease
DX: K74.60 Unspecified cirrhosis of liver (principal); G93.41 Metabolic encephalopathy; E87.1 Hypo-osmolality and hyponatremia; F10.231 Alcohol dependence with withdrawal delirium; R55 Syncope and collapse; E87.6 Hypokalemia; E87.8 Other disorders of electrolyte and fluid balance, not elsewhere classified; S09.90XA Unspecified injury of head, initial encounter; Z20.822 Contact with and (suspected) exposure to COVID-19; K21.9 Gastro-esophageal reflux disease without esophagitis; X58.XXXA Exposure to other specified factors, initial encounter; I50.9 Heart failure, unspecified; I27.21 Secondary pulmonary arterial hypertension; J45.909 Unspecified asthma, uncomplicated; K70.10 Alcoholic hepatitis without ascites; Z85.038 Personal history of other malignant neoplasm of large intestine; Z90.710 Acquired absence of both cervix and uterus; Z90.49 Acquired absence of other specified parts of digestive tract; Z88.0 Allergy status to penicillin; Z88.1 Allergy status to other antibiotic agents; Y93.89 Activity, other specified; Y92.89 Other specified places as the place of occurrence of the external cause; Y99.8 Other external cause status
CPT/HCPCS: 36415; 70450; 70486; 71045; 80048; 80053; 80320; 81001; 83735; 83880; 84484; 85025; 85610; 85730; 87426; 93005; 94640; 96365; 96375; 97110; 97116; 97530; G0378; J1885; J3480

== ENCOUNTER → 2022-08-03 | Outpatient (CLI) | payer BC ==
[~2022-08-03] MED LIST changes: -CYANOCOBALAMIN (B-12) 1000 MCG/1 ML VIAL IM ONE; -CYANOCOBALAMIN (B-12) 1000 MCG/1 ML VIAL ONE; +FURO1TAB31 PO; +LORA-655 PO; +MACI1TAB2 PO; +PANT40TA2 PO; +POLY33504 PO; +POTA10TA51 PO; +SUCR1TAB PO
== END | disposition home or self-care (01) ==
LOC: Rad HDHVI 13:12
PROVIDERS: ATTEND Internal Medicine Cardiovascular Disease
DX: I08.8 Other rheumatic multiple valve diseases (principal); R00.2 Palpitations; R06.02 Shortness of breath
CPT/HCPCS: 93306

== ENCOUNTER → 2022-11-23 | Outpatient (CLI) | payer BC ==
[~2022-11-23] MED LIST changes: +CYANOCOBALAMIN (B-12) 1000 MCG/1 ML VIAL IM ONE; +CYANOCOBALAMIN (B-12) 1000 MCG/1 ML VIAL ONE
[2022-11-23 15:20] VITALS: BP 114/76; PULSE 106; RESP 22; O2SAT 90
[2022-11-23 15:37] VITALS: BP 109/71; PULSE 98; RESP 20; O2SAT 94
== END | disposition home or self-care (01) ==
LOC: CHF HDHVI 14:51
PROVIDERS: ATTEND Internal Medicine Cardiovascular Disease
DX: I27.21 Secondary pulmonary arterial hypertension (principal); D64.9 Anemia, unspecified; I11.0 Hypertensive heart disease with heart failure; I50.9 Heart failure, unspecified; K21.9 Gastro-esophageal reflux disease without esophagitis; J45.909 Unspecified asthma, uncomplicated; Z85.038 Personal history of other malignant neoplasm of large intestine; Z90.710 Acquired absence of both cervix and uterus; Z90.49 Acquired absence of other specified parts of digestive tract; Z88.0 Allergy status to penicillin; Z88.1 Allergy status to other antibiotic agents
CPT/HCPCS: 96372; G0463; J3420

== ENCOUNTER → 2022-12-22 | Outpatient (CLI) | payer BC ==
[2022-12-22 13:27] VITALS: BP 97/67; PULSE 103; RESP 18; O2SAT 94
[2022-12-22 14:04] VITALS: BP 92/63; PULSE 102; RESP 18; O2SAT 95
== END | disposition home or self-care (01) ==
LOC: CHF HDHVI 13:21
PROVIDERS: ATTEND Internal Medicine Cardiovascular Disease
DX: I27.21 Secondary pulmonary arterial hypertension (principal); D64.9 Anemia, unspecified; I11.0 Hypertensive heart disease with heart failure; I50.9 Heart failure, unspecified; K21.9 Gastro-esophageal reflux disease without esophagitis; J45.909 Unspecified asthma, uncomplicated; Z85.038 Personal history of other malignant neoplasm of large intestine; Z90.49 Acquired absence of other specified parts of digestive tract; Z90.710 Acquired absence of both cervix and uterus; Z88.0 Allergy status to penicillin; Z88.1 Allergy status to other antibiotic agents
CPT/HCPCS: 96372; G0463; J3420

== ENCOUNTER → 2023-02-01 | Outpatient (CLI) | payer BC ==
[~2023-02-01] MED LIST changes: -CYANOCOBALAMIN (B-12) 1000 MCG/1 ML VIAL IM ONE; -CYANOCOBALAMIN (B-12) 1000 MCG/1 ML VIAL ONE
== END | disposition home or self-care (01) ==
LOC: Rad HDHVI 10:10
PROVIDERS: ATTEND Internal Medicine Cardiovascular Disease
DX: I10 Essential (primary) hypertension (principal); R55 Syncope and collapse
CPT/HCPCS: 93306